=== PATIENT | male | born 1985 | race Caucasian/White ===

== ENCOUNTER 2018-02-27 19:52 | Emergency (ER) | payer OTHER ==
[~2018-02-27] VITALS: Ht 170.2 cm; Wt 58.2 kg
[2018-02-27] MEDS ORDERED: ACETAMINOPHEN 500 MG TABLET PO ONE (23:45)
[2018-02-27] MEDS ORDERED: DiphenhydrAMINE HCL 25 MG CAPSULE PO ONE (23:45)
[2018-02-28 00:15] VITALS: BP 129/84
== END 2018-02-28 00:19 | disposition home or self-care (01) ==
LOC: EMS 19:54
DX: B02.9 Zoster without complications (principal); F17.210 Nicotine dependence, cigarettes, uncomplicated
CPT/HCPCS: 99283; 99406

== ENCOUNTER 2025-06-22 14:21 | Emergency (ER) | payer SELFPAY ==
[~2025-06-22] VITALS: Ht 162.6 cm; Wt 68.2 kg
[2025-06-22 14:25] VITALS: TEMP 98.1
[2025-06-22 14:35] VITALS: BP 151/87; PULSE 89; RESP 16; O2SAT 96
[2025-06-22 15:35] LABS: COVID AG,FIA SOURCE NASAL SWAB
[2025-06-22 16:04] LABS: INFLUENZA TYPE A NEGATIVE FOR TYPE A (NEGATIVE); INFLUENZA TYPE B NEGATIVE FOR TYPE B (NEGATIVE); SARS-COV2 (COVID) ANTIGEN,FIA Negative (Negative)
[2025-06-22] MEDS ORDERED: PRED-554 PO (16:29)
[2025-06-22] MEDS ORDERED: DIPH25CA85 PO (16:29)
== END 2025-06-22 16:54 | disposition home or self-care (01) ==
LOC: EMS 14:21
DX: T78.03XA Anaphylactic reaction due to other fish, initial encounter (principal); F17.210 Nicotine dependence, cigarettes, uncomplicated; J32.9 Chronic sinusitis, unspecified; Z20.822 Contact with and (suspected) exposure to COVID-19; X58.XXXA Exposure to other specified factors, initial encounter
CPT/HCPCS: 99283; 87426; 87804; J7512